=== PATIENT | male | born 1935 | race Caucasian/White ===

== ENCOUNTER 2017-10-28 14:26 | Inpatient (IN) | payer MEDICARE, MEDICAID ==
[~2017-10-28] VITALS: Ht 177.8 cm; Wt 67.6 kg
--- NOTE | 2017-10-28 14:35 | NUR ---
Dr Aragon at the bedside for MSE.
[2017-10-28] MEDS ORDERED: BABY SHAMPOO (14:52)
[2017-10-28] MEDS ORDERED: ASPI81TA31 PO (14:52)
[2017-10-28 15:07] LABS: BASOPHILS % (AUTO) 0.7 % (0.0-2.0); EOSINOPHILS # (AUTO) 0.2 K/uL (0.0-0.7); EOSINOPHILS % (AUTO) 3.3 % (0.0-7.0); HEMATOCRIT 34.6 % (36.7-47.1); HEMOGLOBIN 11.7 g/dL (12.5-16.3); LYMPHOCYTES # (AUTO) 0.9 K/uL (20.0-40.0); LYMPHOCYTES % (AUTO) 18.6 % (20.5-51.5); MEAN CORPUSCULAR HEMOGLOBIN 30.8 uug (23.8-33.4); MEAN CORPUSCULAR HGB CONC 34 g/dL (32.5-36.3); MEAN CORPUSCULAR VOLUME 91.1 fL (73.0-96.2); MONOCYTES # (AUTO) 0.4 K/uL (2.0-10.0); MONOCYTES % (AUTO) 8.3 % (0.0-11.0); NEUTROPHILS # (AUTO) 3.3 K/uL (1.8-8.9); NEUTROPHILS % (AUTO) 69.1 % (38.5-71.5); PLATELET COUNT (AUTO) 128 K/uL (152-348); WHITE BLOOD COUNT (AUTO) 4.8 K/uL (3.6-10.2)
[2017-10-28 15:09] LABS: CARBON DIOXIDE 28 mmol/L (21-32); CHLORIDE 106 mmol/L (98-107); CREATININE 1.2 mg/dL (0.6-1.3); GLUCOSE 126 mg/dL (74-106); POTASSIUM 4.2 mmol/L (3.5-5.1); UREA NITROGEN, BLOOD 32 mg/dL (7-18)
[2017-10-28 15:15] LABS: ACETAMINOPHEN < 2.0 ug/mL (10-30); ALANINE AMINOTRANSFERASE 14 U/L (16-63); ALKALINE PHOSPHATASE 75 U/L (50-136); ASPARTATE AMINOTRANSFERASE 9 U/L (15-37); BILIRUBIN,DIRECT 0.1 mg/dL (0.0-0.2); BILIRUBIN,TOTAL 0.3 mg/dL (0.2-1.0); TOTAL PROTEIN, SERUM 5.5 g/dL (6.4-8.2)
--- NOTE | 2017-10-28 15:52 | NUR ---
Pt pulled saline lock out on LT wrist, start a new HL on LT ac.
[2017-10-28 16:02] LABS: THYROID STIMULATING HORMONE 1.581 mIU/mL (0.358-3.740)
--- NOTE | 2017-10-28 16:03 | NUR ---
Pt out of Er for CT. quality analyst/technical writer will transfer pt to Tele after CT completed.
[2017-10-28 16:21] VITALS: BP 110/53
--- NOTE | 2017-10-28 16:30 | NUR ---
Received patient from ER via [facility]. Patient is alert, in no distress, hard of hearing, unable to provide detailed information. Dx: Bradycardia, weakness, under the care of Dr. Oglesby. Admission process and careplan initiated. Will notify MD for new admission orders.
[2017-10-28 17:10] LABS: *BILIRUBIN,URIN NEGATIVE (NEGATIVE); *BLOOD, URINE 2+ (NEGATIVE); *COLOR,URINE YELLOW (YELLOW); *KETONES,URINE NEGATIVE (NEGATIVE); *PROTEIN,URINE NEGATIVE (NEGATIVE); *UROBILINOGEN,URINE 0.2 E.U./dl (NORMAL); LEUKOCYTE ESTERASE ,URINE TRACE (NEGATIVE); NITRITE, URINE NEGATIVE (NEGATIVE); PH,URINE 5.5 (5.0-8.0); UGLUCOSE NEGATIVE (NEGATIVE)
[2017-10-28 17:25] LABS: *CLARITY,URINE HAZY (CLEAR)
[2017-10-28 17:26] LABS: RBC,URINE 50-80 /HPF (0-3)
[2017-10-28 17:27] LABS: MUCUS,URINE FEW /LPF (0-FEW); SQUAMOUS EPITHELIAL CELL,UR FEW /HPF (NONE SEEN)
--- NOTE | 2017-10-28 18:00 | NUR ---
Patient is on telemonitor, sinus ernie 53
[2017-10-28] MEDS ORDERED: MAGNESIUM HYDROXIDE 30 ML LIQUID UDC PO PRN (18:45)
[2017-10-28 19:00] VITALS: BP 141/65
--- NOTE | 2017-10-28 19:00 | NUR ---
Medication unverified as of this time. Will endorse to oncoming shift RN to administer new admission orders.
--- NOTE | 2017-10-28 20:00 | NUR ---
Patient awake & alert no SOB denies chest pain. Severe [place] noted. Vital signs WNL. Sinus ernie on the monitor. Noted infiltrated IV line, inserted new line on left forearm [id number].
[2017-10-28] MEDS: CEFTRIAXONE 1 G in IV DEXTROSE 5% 50 ML IV SCH (20:05)
[2017-10-28] MEDS: DOCUSATE SODIUM 100 MG CAPSULE PO SCH (20:33)
[2017-10-28] MEDS: ZOLPIDEM 5 MG TABLET PO PRN (20:34)
--- NOTE | 2017-10-28 21:48 | NUR ---
Routine night meds adm, patient tolerated.
[2017-10-28] MEDS: ACETAMINOPHEN 325 MG TABLET PO PRN (22:19)
--- NOTE | 2017-10-28 22:50 | NUR ---
Large formed-soft BM noted, incontinence care provided.
[2017-10-29] VITALS: BP 120/60
[2017-10-29 04:00] VITALS: BP 139/65
[2017-10-29] MEDS: PANTOPRAZOLE SODIUM 40 MG TABLET.DR PO SCH (06:21)
--- NOTE | 2017-10-29 06:36 | NUR ---
Patient rested well, no acute resp distress. Sinus ernie on the monitor. Refused morning blood draw today.
[2017-10-29] MEDS: ACETAMINOPHEN 325 MG TABLET PO PRN ×3 (08:16→20:57)
--- NOTE | 2017-10-29 08:30 | NUR ---
AWAKE ALERT VERY [place] NO SOB OR PAIN ON ASPIRATION AND FALL PRECAUTION BED ALARM ON AND CALL LIGHT IN REACH AND INSTRUCTION TO CALL WHEN NEEDED EAT BREAKFAST WITH GOOD APPETITE THIS MORNING
[2017-10-29 08:38] LABS: BASOPHILS % (AUTO) 0.8 % (0.0-2.0); EOSINOPHILS # (AUTO) 0.2 K/uL (0.0-0.7); EOSINOPHILS % (AUTO) 3.6 % (0.0-7.0); HEMATOCRIT 36.8 % (36.7-47.1); HEMOGLOBIN 12.4 g/dL (12.5-16.3); LYMPHOCYTES % (AUTO) 21.7 % (20.5-51.5); MEAN CORPUSCULAR HEMOGLOBIN 30.9 uug (23.8-33.4); MEAN CORPUSCULAR HGB CONC 34 g/dL (32.5-36.3); MEAN CORPUSCULAR VOLUME 91.6 fL (73.0-96.2); MONOCYTES # (AUTO) 0.4 K/uL (2.0-10.0); MONOCYTES % (AUTO) 7.5 % (0.0-11.0); NEUTROPHILS # (AUTO) 3.1 K/uL (1.8-8.9); NEUTROPHILS % (AUTO) 66.4 % (38.5-71.5); PLATELET COUNT (AUTO) 115 K/uL (152-348); RED BLOOD CELL COUNT(AUTO) 4.02 MIL/uL (4.06-5.63); WHITE BLOOD COUNT (AUTO) 4.7 K/uL (3.6-10.2)
[2017-10-29 08:57] LABS: IRON, SERUM 62 ug/dL (50-175)
[2017-10-29] MEDS ORDERED: ASPIRIN 81 MG TAB.CHEW PO SCH (09:00)
[2017-10-29 09:04] LABS: THYROID STIMULATING HORMONE 2.116 mIU/mL (0.358-3.740)
[2017-10-29 09:19] LABS: ALANINE AMINOTRANSFERASE 13 U/L (16-63); ALKALINE PHOSPHATASE 74 U/L (50-136); ASPARTATE AMINOTRANSFERASE 9 U/L (15-37); BILIRUBIN,TOTAL 0.4 mg/dL (0.2-1.0); CARBON DIOXIDE 27 mmol/L (21-32); CHLORIDE 109 mmol/L (98-107); CHOLESTEROL 115 mg/dL (<200); CREATININE 1.1 mg/dL (0.6-1.3); GLUCOSE 86 mg/dL (74-106); HDL CHOLESTEROL 38 mg/dL (40-60); MAGNESIUM 1.9 mg/dL (1.8-2.4); POTASSIUM 4.1 mmol/L (3.5-5.1); TOTAL PROTEIN, SERUM 5.9 g/dL (6.4-8.2); TRIGLYCERIDES 91 MG/DL (30-150); UREA NITROGEN, BLOOD 30 mg/dL (7-18)
--- NOTE | 2017-10-29 11:00 | NUR ---
[facility] SEEN PATIENT AND LAB RESULT PT CONDITION HAVING RED EYE LEFT INFORM ORDERED EYE OINTMENT TODAY
[2017-10-29 11:45] VITALS: BP 108/59
[2017-10-29] MEDS ORDERED: GENTAMICIN SULFATE OPHT OINT 3.5 GM TUBE LEFTEYE SCH (11:45)
[2017-10-29 11:49] VITALS: BP 108/59
[2017-10-29] MEDS ORDERED: TOBRAMYCIN/DEXAMETH OPHT OINT 3.5 GM TUBE LEFTEYE SCH (12:45)
[2017-10-29] MEDS ORDERED: Z GUARD REMEDY PASTE 57 GM TUBE TOP PRN (14:00)
[2017-10-29] MEDS: TOBRAMYCIN SULFATE OPHT OINT 3.5 GM TUBE LEFTEYE SCH ×2 (14:07→21:01)
--- NOTE | 2017-10-29 15:00 | NUR ---
WARM COMPRESS APPLY TO LEFT EYE JEANA WELL NO PAIN AND EYE OINTMENT APPLY TO LEFT EYE ORDER
[2017-10-29 16:10] VITALS: BP 115/57
--- NOTE | 2017-10-29 17:00 | NUR ---
STABLE HEMODYNAMIC STATUS ,NO ACUTE DISTRESS ,PAIN UNDER CONTROL SAFETY MEASURE PROVIDED CALL LIGHT IN REACH AND BED ALARM ON
[2017-10-29] MEDS: CEFTRIAXONE 1 G in IV DEXTROSE 5% 50 ML IV SCH (18:23)
[2017-10-29 19:30] VITALS: BP 110/66
[2017-10-29] MEDS: DOCUSATE SODIUM 100 MG CAPSULE PO SCH (20:56)
[2017-10-29] MEDS: ZOLPIDEM 5 MG TABLET PO PRN (20:58)
[2017-10-29] MEDS: ENOXAPARIN SODIUM 30 MG/0.3 ML DISP.SYRIN SUBCUT SCH (21:02)
[2017-10-30 00:02] VITALS: BP 160/65
[2017-10-30 04:54] VITALS: BP 137/65
[2017-10-30] MEDS: PANTOPRAZOLE SODIUM 40 MG TABLET.DR PO SCH (06:30)
[2017-10-30 06:33] LABS: BASOPHILS % (AUTO) 0.4 % (0.0-2.0); EOSINOPHILS # (AUTO) 0.2 K/uL (0.0-0.7); EOSINOPHILS % (AUTO) 3.3 % (0.0-7.0); HEMATOCRIT 37.1 % (36.7-47.1); HEMOGLOBIN 12.5 g/dL (12.5-16.3); LYMPHOCYTES # (AUTO) 0.9 K/uL (20.0-40.0); LYMPHOCYTES % (AUTO) 18.3 % (20.5-51.5); MEAN CORPUSCULAR HEMOGLOBIN 30.7 uug (23.8-33.4); MEAN CORPUSCULAR HGB CONC 34 g/dL (32.5-36.3); MEAN CORPUSCULAR VOLUME 91.1 fL (73.0-96.2); MONOCYTES # (AUTO) 0.5 K/uL (2.0-10.0); MONOCYTES % (AUTO) 8.8 % (0.0-11.0); NEUTROPHILS # (AUTO) 3.6 K/uL (1.8-8.9); NEUTROPHILS % (AUTO) 69.2 % (38.5-71.5); PLATELET COUNT (AUTO) 126 K/uL (152-348); RED BLOOD CELL COUNT(AUTO) 4.07 MIL/uL (4.06-5.63); WHITE BLOOD COUNT (AUTO) 5.2 K/uL (3.6-10.2)
--- NOTE | 2017-10-30 07:10 | NUR ---
Patient had 1 bowel movement this morning. Sinus ernie on the monitor. Assisted w/ all needs. Pt slept well , handed off report to day shift nurse CLAYTON Montgomery.
[2017-10-30 07:11] LABS: ALANINE AMINOTRANSFERASE 13 U/L (16-63); ALKALINE PHOSPHATASE 74 U/L (50-136); ASPARTATE AMINOTRANSFERASE 10 U/L (15-37); BILIRUBIN,TOTAL 0.3 mg/dL (0.2-1.0); CARBON DIOXIDE 29 mmol/L (21-32); CHLORIDE 108 mmol/L (98-107); CREATININE 1.1 mg/dL (0.6-1.3); MAGNESIUM 1.9 mg/dL (1.8-2.4); PHOSPHOROUS 3.3 mg/dL (2.5-4.9); POTASSIUM 4.3 mmol/L (3.5-5.1); TOTAL PROTEIN, SERUM 5.7 g/dL (6.4-8.2); UREA NITROGEN, BLOOD 30 mg/dL (7-18)
--- NOTE | 2017-10-30 07:20 | NUR ---
Received patient in bed, asleep. No s/s of discomfort or SOB noted. IV site on RFA patent. Will continue to monitor.
[2017-10-30] MEDS: TOBRAMYCIN SULFATE OPHT OINT 3.5 GM TUBE LEFTEYE SCH ×2 (08:48→20:52)
[2017-10-30 09:33] LABS: GLUCOSE 84 mg/dL (74-106)
[2017-10-30 12:06] VITALS: BP 108/56
[2017-10-30 16:06] VITALS: BP 113/58
--- NOTE | 2017-10-30 19:45 | NUR ---
Patient resting in bed. Appears to be in no distress at this time with microphone of TV remote to face. Patient hard of hearing. No c/o pain at this time. New order to DC tele carried out. Will continue to monitor.
[2017-10-30] MEDS: DOCUSATE SODIUM 100 MG CAPSULE PO SCH (20:53)
[2017-10-30] MEDS: ZOLPIDEM 5 MG TABLET PO PRN (20:54)
[2017-10-30] MEDS: ENOXAPARIN SODIUM 30 MG/0.3 ML DISP.SYRIN SUBCUT SCH (20:57)
--- NOTE | 2017-10-30 20:58 | NUR ---
Patient awake alert oriented. Patient requested medication for sleep. Medication administered will reassess. Lovenox held. Plt 125. Patient continues to be watching TV. Call light in reach. No complaints of pain or discomfort. No SOB. Will continue to monitor.
[2017-10-30 21:00] VITALS: BP 122/61
--- NOTE | 2017-10-31 01:00 | NUR ---
Patient continues to be resting in bed comfortably. Zolpidem appears to be ineffective. Patient intermittently waking up and going back to sleep. No complaints of pain at this time. No SOB noted. Call light in reach. Frequent visual checks throughout night.
[2017-10-31 04:00] VITALS: BP 143/69
--- NOTE | 2017-10-31 05:20 | NUR ---
Pericare provided by STEEPING PRESS OPERATOR. Patient made comfortable. Call light in reach. Has awakened now. Will continue to monitor.
[2017-10-31] MEDS: PANTOPRAZOLE SODIUM 40 MG TABLET.DR PO SCH (06:10)
[2017-10-31 06:45] LABS: BASOPHILS % (AUTO) 0.4 % (0.0-2.0); EOSINOPHILS # (AUTO) 0.2 K/uL (0.0-0.7); EOSINOPHILS % (AUTO) 3.6 % (0.0-7.0); HEMATOCRIT 36.1 % (36.7-47.1); HEMOGLOBIN 12.2 g/dL (12.5-16.3); LYMPHOCYTES # (AUTO) 0.9 K/uL (20.0-40.0); LYMPHOCYTES % (AUTO) 18.8 % (20.5-51.5); MEAN CORPUSCULAR HEMOGLOBIN 30.9 uug (23.8-33.4); MEAN CORPUSCULAR HGB CONC 34 g/dL (32.5-36.3); MEAN CORPUSCULAR VOLUME 91.4 fL (73.0-96.2); MONOCYTES # (AUTO) 0.4 K/uL (2.0-10.0); MONOCYTES % (AUTO) 8.9 % (0.0-11.0); NEUTROPHILS # (AUTO) 3.2 K/uL (1.8-8.9); NEUTROPHILS % (AUTO) 68.3 % (38.5-71.5); PLATELET COUNT (AUTO) 120 K/uL (152-348); RED BLOOD CELL COUNT(AUTO) 3.95 MIL/uL (4.06-5.63); WHITE BLOOD COUNT (AUTO) 4.7 K/uL (3.6-10.2)
[2017-10-31 07:02] LABS: ALANINE AMINOTRANSFERASE 13 U/L (16-63); ALKALINE PHOSPHATASE 78 U/L (50-136); ASPARTATE AMINOTRANSFERASE 11 U/L (15-37); BILIRUBIN,TOTAL 0.4 mg/dL (0.2-1.0); CARBON DIOXIDE 30 mmol/L (21-32); CHLORIDE 108 mmol/L (98-107); CREATININE 1.1 mg/dL (0.6-1.3); GLUCOSE 95 mg/dL (74-106); PHOSPHOROUS 3.2 mg/dL (2.5-4.9); POTASSIUM 4.3 mmol/L (3.5-5.1); TOTAL PROTEIN, SERUM 5.8 g/dL (6.4-8.2); UREA NITROGEN, BLOOD 37 mg/dL (7-18)
[2017-10-31] MEDS: TOBRAMYCIN SULFATE OPHT OINT 3.5 GM TUBE LEFTEYE SCH (08:26)
--- NOTE | 2017-10-31 11:26 | NUR ---
PATIENT REFUSED FOR THE ROUTINE BLOOD PRESSURE TO BE CHECKED AT THIS TIME STATED THAT ITS TOO TIGHT EXPLAINED TO HIM THAT IT WILL TAKE LESS THAN A MINUTE BUT HE STATED DOES NOT WANT IT CHECKED.PATIENTS RIGHTS TO REFUSE RESPECTED.
[2017-10-31] MEDS ORDERED: DOCU100C36 PO (13:22)
[2017-10-31] MEDS ORDERED: ACET325T53 PO (13:22)
[2017-10-31] MEDS ORDERED: PANT40TA2 PO (13:22)
[2017-10-31] MEDS ORDERED: TOBR3.5O LEFTEYE (13:22)
--- NOTE | 2017-10-31 13:36 | NUR ---
ORDER TO DISCHARGE PATIENT TODAY TO [facility] TO [facility] WILL PREPARE PATIENT FOR DISCHARGE.
--- NOTE | 2017-10-31 14:17 | NUR ---
CALLED VINAY GARCIA AND REPORT GIVEN TO STEPHON ALSO CALLED PATIENTS [facility]ORG[facility] PAGAN AND NOTIFIED HER THAT PATIENT WILL BE TRANSFERED TO [facility] AND SHE EXPRESSED UNDERSTANDING.
--- NOTE | 2017-10-31 15:15 | NUR ---
PATIENT DISCHARGED IN SATISFACTORY CONDITION PICKED UP BY THE AMBULANCE HE HAD NO PERSONAL BELONGINGS UNABLE TO UNDERSTAND HIS DISCHARGE INSTRUCTIONS BUT REPORT WAS ALREADY GIVEN TO VINAY GARCIA AND THE AMBULANCE TECHS.
== END 2017-10-31 15:15 | DRG 811 ==
LOC: ER 14:30 → TELE 15:55 → MED 10-30 19:50
PROVIDERS: ADMIT Internal Medicine; ATTEND Internal Medicine
DX: D64.9 Anemia, unspecified (principal); N17.0 Acute kidney failure with tubular necrosis; I50.32 Chronic diastolic (congestive) heart failure; J98.11 Atelectasis; R00.1 Bradycardia, unspecified; I25.2 Old myocardial infarction; I11.0 Hypertensive heart disease with heart failure; H91.90 Unspecified hearing loss, unspecified ear; H01.006 Unspecified blepharitis left eye, unspecified eyelid; I25.10 Atherosclerotic heart disease of native coronary artery without angina pectoris; I73.9 Peripheral vascular disease, unspecified; Z89.512 Acquired absence of left leg below knee; I69.898 Other sequelae of other cerebrovascular disease; G93.89 Other specified disorders of brain; H70.10 Chronic mastoiditis, unspecified ear; D69.6 Thrombocytopenia, unspecified; E88.09 Other disorders of plasma-protein metabolism, not elsewhere classified; D53.9 Nutritional anemia, unspecified; Z87.01 Personal history of pneumonia (recurrent); J44.9 Chronic obstructive pulmonary disease, unspecified; I67.2 Cerebral atherosclerosis
CPT/HCPCS: 36415; 70030-TC; 70450; 71045; 83550; 83605; 83735; 84100; 84443; 85025; 85730; 87040; 87086; 92610; 93005; 93307; A4663; C1758; G0480-TC; J0696; J1650; J3590; J7030; J7050; J7060

== ENCOUNTER 2018-12-30 16:12 | Inpatient (IN) | payer MEDICARE, MEDICAID ==
[~2018-12-30] VITALS: Ht 175.3 cm; Wt 72.6 kg
[~2018-12-30 16:12] MED LIST: ACET325T53 PO; ASPI81TA31 PO; DOCU100C36 PO; PANT40TA2 PO; TOBR3.5O LEFTEYE
[2018-12-30] MEDS ORDERED: MINE3.5O EACHEYE (16:24)
[2018-12-30] MEDS ORDERED: DEXT15DR6 EACHEYE (16:24)
[2018-12-30] MEDS ORDERED: RIVA10TA PO (16:24)
[2018-12-30 16:51] LABS: BASOPHILS % (AUTO) 0.8 % (0.0-2.0); EOSINOPHILS # (AUTO) 0.4 K/uL (0.0-0.7); EOSINOPHILS % (AUTO) 7.6 % (0.0-7.0); LYMPHOCYTES # (AUTO) 1.3 K/uL (20.0-40.0); LYMPHOCYTES % (AUTO) 24.1 % (20.5-51.5); MEAN CORPUSCULAR HEMOGLOBIN 29.2 uug (23.8-33.4); MEAN CORPUSCULAR HGB CONC 33 g/dL (32.5-36.3); MEAN CORPUSCULAR VOLUME 89.5 fL (73.0-96.2); MONOCYTES # (AUTO) 0.4 K/uL (2.0-10.0); NEUTROPHILS # (AUTO) 3.2 K/uL (1.8-8.9); NEUTROPHILS % (AUTO) 59.5 % (38.5-71.5); PLATELET COUNT (AUTO) 141 K/uL (152-348); WHITE BLOOD COUNT (AUTO) 5.4 K/uL (3.6-10.2)
[2018-12-30 16:55] LABS: CREATININE 1.1 mg/dL (0.6-1.3); POTASSIUM 4.2 mmol/L (3.5-5.1)
[2018-12-30 17:01] LABS: BILIRUBIN,DIRECT 0.1 mg/dL (0.0-0.2); BILIRUBIN,TOTAL 0.4 mg/dL (0.2-1.0); TOTAL PROTEIN, SERUM 6.3 g/dL (6.4-8.2)
[2018-12-30] MEDS ORDERED: POLYVINYL ALCOHOL OPHT DROPS 15 ML BOTTLE EACHEYE PRN (18:00)
[2018-12-30] MEDS ORDERED: ZOLPIDEM 5 MG TABLET PO PRN (18:00)
[2018-12-30] MEDS ORDERED: MAGNESIUM HYDROXIDE 30 ML LIQUID UDC PO PRN (18:00)
[2018-12-30] MEDS ORDERED: ACETAMINOPHEN 325 MG TABLET PO PRN ×2 (18:00)
[2018-12-30] MEDS ORDERED: ONDANSETRON 4 MG/2 ML VIAL IV PRN (18:00)
[2018-12-30] MEDS ORDERED: HYDROCODONE/APAP 5-325MG TABLET PO PRN (18:00)
[2018-12-30] MEDS: IV 1/2NS 1000 ML 1,000 ML IV PRN (18:16)
--- NOTE | 2018-12-30 18:40 | NUR ---
Received pt. from ER via [employer] at 6:00 PM. Pt. hs IV in R forearm 20 gauge intact patent. Pt. had 1 BM and urinated. Pt. denies SOB or difficulty breathing. pt. denies any pain or discomfort. Vital signs stable. Safety measures in place. Call light within reach. Will continue to monitor pt.
[2018-12-30 18:41] VITALS: BP 129/84
[2018-12-30] MEDS: RIVAROXABAN 10 MG TABLET PO SCH (19:02)
[2018-12-30 19:52] VITALS: BP 119/64
[2018-12-30] MEDS: DOCUSATE SODIUM 100 MG CAPSULE PO SCH (20:29)
[2018-12-31] VITALS: BP 107/46
[2018-12-31 04:00] VITALS: BP 110/53
[2018-12-31] MEDS: IV 1/2NS 1000 ML 1,000 ML IV PRN ×2 (05:40→17:18)
[2018-12-31 07:10] LABS: BASOPHILS % (AUTO) 0.7 % (0.0-2.0); EOSINOPHILS # (AUTO) 0.4 K/uL (0.0-0.7); EOSINOPHILS % (AUTO) 8.6 % (0.0-7.0); HEMATOCRIT 40.3 % (36.7-47.1); HEMOGLOBIN 13.8 g/dL (12.5-16.3); LYMPHOCYTES # (AUTO) 1.3 K/uL (20.0-40.0); LYMPHOCYTES % (AUTO) 27.1 % (20.5-51.5); MEAN CORPUSCULAR HEMOGLOBIN 30.7 uug (23.8-33.4); MEAN CORPUSCULAR HGB CONC 34 g/dL (32.5-36.3); MEAN CORPUSCULAR VOLUME 89.9 fL (73.0-96.2); MONOCYTES # (AUTO) 0.4 K/uL (2.0-10.0); NEUTROPHILS # (AUTO) 2.6 K/uL (1.8-8.9); NEUTROPHILS % (AUTO) 55.6 % (38.5-71.5); PLATELET COUNT (AUTO) 132 K/uL (152-348); RED BLOOD CELL COUNT(AUTO) 4.48 MIL/uL (4.06-5.63); WHITE BLOOD COUNT (AUTO) 4.7 K/uL (3.6-10.2)
[2018-12-31 07:17] LABS: CARBON DIOXIDE 25 mmol/L (21-32); CHLORIDE 106 mmol/L (98-107); CHOLESTEROL 113 mg/dL (<200); CREATININE 0.9 mg/dL (0.6-1.3); GLUCOSE 81 mg/dL (74-106); HDL CHOLESTEROL 31 mg/dL (40-60); MAGNESIUM 1.8 mg/dL (1.8-2.4); PHOSPHOROUS 2.9 mg/dL (2.5-4.9); POTASSIUM 3.9 mmol/L (3.5-5.1); TRIGLYCERIDES 77 MG/DL (30-150); UREA NITROGEN, BLOOD 23 mg/dL (7-18)
[2018-12-31 07:33] LABS: THYROID STIMULATING HORMONE 3.784 mIU/mL (0.358-3.740)
--- NOTE | 2018-12-31 08:00 | NUR ---
received patient on bed, oriented, denies any discomfort. appreciative of care. coffee and breakfast served, tolerated well. set up and able to feed self. discussed safety to call nurse for assistance , prevent fall injury, verbalized understanding.
[2018-12-31] MEDS: ASPIRIN 81 MG TAB.CHEW PO SCH (08:49)
[2018-12-31] MEDS: Z GUARD REMEDY PASTE 57 GM TUBE TOP PRN ×2 (08:50→17:55)
[2018-12-31] MEDS: RIVAROXABAN 10 MG TABLET PO SCH ×2 (08:52→17:18)
[2018-12-31] MEDS: MINERAL OIL/PETROLAT OPHT OINT 3.5 GM TUBE EACHEYE SCH ×2 (10:01→17:20)
[2018-12-31 11:35] VITALS: BP 148/70
--- NOTE | 2018-12-31 12:00 | NUR ---
watching tv, denies distress.
[2018-12-31 16:10] VITALS: BP 138/71
--- NOTE | 2018-12-31 18:43 | NUR ---
resting well, no distress noted. taking fluids well, appetite good. cooperative with care, calm
[2018-12-31 20:22] VITALS: BP 129/76
[2018-12-31] MEDS: DOCUSATE SODIUM 100 MG CAPSULE PO SCH (20:32)
[2019-01-01 00:28] VITALS: BP 157/74
[2019-01-01 04:15] VITALS: BP 139/81
[2019-01-01] MEDS: IV 1/2NS 1000 ML 1,000 ML IV PRN ×2 (05:18→15:44)
--- NOTE | 2019-01-01 07:45 | NUR ---
sleeping comfortably. hob up.
[2019-01-01] MEDS: MINERAL OIL/PETROLAT OPHT OINT 3.5 GM TUBE EACHEYE SCH ×2 (08:38→17:32)
[2019-01-01] MEDS: ASPIRIN 81 MG TAB.CHEW PO SCH (08:38)
[2019-01-01] MEDS: RIVAROXABAN 10 MG TABLET PO SCH ×2 (08:40→17:34)
--- NOTE | 2019-01-01 11:38 | NUR ---
awake, denies discomfort. no acute respiratory distress noted.
[2019-01-01 11:41] VITALS: BP 152/70
--- NOTE | 2019-01-01 14:00 | NUR ---
sleeping, comfortable. easily wakes up, denies distress, pleasant, no agitation
[2019-01-01 15:35] VITALS: BP 150/74
--- NOTE | 2019-01-01 19:00 | NUR ---
RECEIVED PATIENT ALERT AND AWAKE, IN NO DISTRESS. IV SITE INTACT AND PATENT. BED IN LOCKED POSITION, LOWEST POSITION. CALL LIGHT WITHIN REACH. WILL CONTINUE TO MONITOR.
--- NOTE | 2019-01-01 19:04 | NUR ---
comfortable. no change from above
[2019-01-01 20:00] VITALS: BP 189/81
[2019-01-01 20:14] VITALS: BP 153/74
[2019-01-01] MEDS: DOCUSATE SODIUM 100 MG CAPSULE PO SCH (20:41)
[2019-01-02 06:14] VITALS: BP 140/62
[2019-01-02] MEDS: IV 1/2NS 1000 ML 1,000 ML IV PRN (06:39)
[2019-01-02] MEDS: ASPIRIN 81 MG TAB.CHEW PO SCH (08:47)
[2019-01-02] MEDS: MINERAL OIL/PETROLAT OPHT OINT 3.5 GM TUBE EACHEYE SCH (08:48)
[2019-01-02] MEDS: RIVAROXABAN 10 MG TABLET PO SCH (08:53)
[2019-01-02 11:19] VITALS: BP 139/65
[2019-01-02 15:17] VITALS: BP 132/60
--- NOTE | 2019-01-02 15:40 | NUR ---
PATIENT DISCHARGED PICKED UP BY THE AMBULANCE IN SATISFACTORY CONDITION WITH DISCHARGE INSTRUCTIONS REPORT CALLED TO VINAY GARCIA FOR CONTINUING CARE.
== END 2019-01-02 15:40 | DRG 641 ==
LOC: ER 16:18 → TELE3 17:34 → MEDSURG3 01-01 10:06
DX: E86.0 Dehydration (principal); J90 Pleural effusion, not elsewhere classified; I25.2 Old myocardial infarction; R79.89 Other specified abnormal findings of blood chemistry; R62.7 Adult failure to thrive; Z68.23 Body mass index [BMI] 23.0-23.9, adult; J92.9 Pleural plaque without asbestos; I70.0 Atherosclerosis of aorta; R13.10 Dysphagia, unspecified; Z87.01 Personal history of pneumonia (recurrent); R00.1 Bradycardia, unspecified; I10 Essential (primary) hypertension; F29 Unspecified psychosis not due to a substance or known physiological condition; I25.10 Atherosclerotic heart disease of native coronary artery without angina pectoris; Z79.01 Long term (current) use of anticoagulants; Z22.322 Carrier or suspected carrier of Methicillin resistant Staphylococcus aureus
CPT/HCPCS: 36415; 70030-TC; 71045; 83690; 83735; 84100; 84443; 85025; 85730; 93005; A4663; G0378; J3490; J7030